=== PATIENT | female | born 1930 | race Caucasian/White ===

== ENCOUNTER 2016-10-16 10:00 | Emergency (ER) | payer MEDICARE ==
[~2016-10-16 10:00] MED LIST: BENICAR20 PO; BENICAR5 PO; CALTRA600D PO; DSS50 PO; FERROUS GLUCONATE PO; GLUCCHONDR PO; MULTIVITAMI1 PO; NAMENDA5 PO; NEOSPORIN OPH S10 ML OPH; PCET PO; ZOFRAN8 PO; ZOL50 PO
[2017-01-29] MEDS ORDERED: ZOL50 PO (10:37)
[2017-01-29] MEDS ORDERED: NAMENDA5 PO (10:37)
[2017-01-29] MEDS ORDERED: PRILO PO (10:37)
[2017-01-29] MEDS ORDERED: CLARIT10 PO (10:37)
[2017-01-29] MEDS ORDERED: MYLANTA LIQUID PO (10:38)
[2017-01-29] MEDS ORDERED: T PO (10:39)
[2017-01-29] MEDS ORDERED: CAT1 PO (10:39)
[2017-01-29] MEDS ORDERED: CALCIUM CARB PO (10:40)
[2017-01-29] MEDS ORDERED: MULTIVITAMI1 PO (10:41)
[2017-01-29] MEDS ORDERED: DSS PO (10:42)
== END 2016-10-16 15:22 | disposition home or self-care (01) ==
LOC: ER 10:00
DX: S02.2XXA Fracture of nasal bones, initial encounter for closed fracture (principal); S00.83XA Contusion of other part of head, initial encounter; F03.90 Unspecified dementia, unspecified severity, without behavioral disturbance, psychotic disturbance, mood disturbance, and anxiety; I10 Essential (primary) hypertension; D64.9 Anemia, unspecified; Z90.710 Acquired absence of both cervix and uterus; Z88.0 Allergy status to penicillin; Z88.8 Allergy status to other drugs, medicaments and biological substances; Z88.5 Allergy status to narcotic agent; Z79.899 Other long term (current) drug therapy; W22.8XXA Striking against or struck by other objects, initial encounter
CPT/HCPCS: 70160; 70450; 99284

== ENCOUNTER 2016-11-26 23:55 | Emergency (ER) | payer MEDICARE ==
[2016-11-26 23:06] LABS: BASOPHILS 0.5 %; BASOPHILS ABSOLUTE 0.03 10/3/uL (0.0-0.16); EOSINOPHILS 2.5 %; EOSINOPHILS ABSOLUTE 0.15 10/3/uL (0.0-0.53); IMMATURE GRANULOCYTES 0.3 %; IMMATURE GRANULOCYTES ABSOLUTE 0.02 10/3/uL (0.0-0.11); LYMPHOCYTES 25.3 %; LYMPHOCYTES ABSOLUTE 1.51 10/3/uL (0.67-4.30); MEAN CORPUS HGB CONC 32.6 g/dL (32.0-36.0); MEAN CORPUSCULAR VOLUME 97.9 fL (80-100); MEAN PLATELET VOLUME 11.2 fL (9.2-13.0); MONOCYTES 8.9 %; MONOCYTES ABSOLUTE 0.53 10/3/uL (0.21-1.20); NEUTROPHILS 62.5 %; NEUTROPHILS ABSOLUTE 3.72 10/3/uL (2.02-8.40); RBC DISTRIBUTION WIDTH 13.4 % (12.0-16.0)
[2016-11-26 23:09] LABS: ER CBC TAT 0 Hrs 07 Mins; HEMATOCRIT 33.1 % (36.0-48.0); HEMOGLOBIN 10.8 g/dL (12.0-16.0); MANUAL DIFF NO %; PLATELET COUNT 149 10/3/uL (150-400); RED CELL COUNT 3.38 10/6/uL (4.0-5.6)
[2016-11-26 23:27] LABS: A/G RATIO 1.1 (0.7-1.9); ALBUMIN 3.6 G/DL (3.5-5.0); ALKALINE PHOSPHATASE 107 U/L (45-117); BUN (BLOOD UREA NITROGEN) 25 MG/DL (6-23); CALCIUM, SERUM 8.8 MG/DL (8.5-10.4); CHLORIDE, SERUM 108 MMOL/L (96-112); CREATININE 1.21 MG/DL (0.55-1.02); GFR AFRICAN AMERICAN 47 ML/MIN (>=60); GFR NON AFRICAN AMERICAN 40 ML/MIN (>=60); GLOBULIN 3.2 G/DL (2.5-4.1); GLUCOSE, SERUM 103 MG/DL (60-99); POTASSIUM, SERUM 3.8 MMOL/L (3.5-5.3); SGOT(AST) 28 U/L (5-40); SGPT(ALT) 21 U/L (5-65); SODIUM, SERUM 143 MMOL/L (135-148); TOTAL BILIRUBIN 0.3 MG/DL (0-1.2); TOTAL PROTEIN 6.8 G/DL (6.0-8.5)
[2016-11-26 23:28] LABS: CO2 (CARBON DIOXIDE) 31 MMOL/L (24-34)
[2016-11-27 00:09] LABS: ASCORBIC ACID (UR NOT ORDER) NEG (NEG); BILIRUBIN, URINE NEGATIVE (NEG); ER URINALYSIS TAT 0 Hrs 00 Mins; KETONE, URINE TRACE MG/DL (NEG); LEUKOCYTE ESTERASE(NOT OR SMALL (NEG); NITRITE (URINE) NEG (NEG); WBC (NOT ORDERED) (RFLEX) 5 (0-5)
[2017-01-29] MEDS ORDERED: NAMENDA5 PO (10:37)
[2017-01-29] MEDS ORDERED: PRILO PO (10:37)
[2017-01-29] MEDS ORDERED: ZOL50 PO (10:37)
[2017-01-29] MEDS ORDERED: CLARIT10 PO (10:37)
[2017-01-29] MEDS ORDERED: MYLANTA LIQUID PO (10:38)
[2017-01-29] MEDS ORDERED: CAT1 PO (10:39)
[2017-01-29] MEDS ORDERED: T PO (10:39)
[2017-01-29] MEDS ORDERED: CALCIUM CARB PO (10:40)
[2017-01-29] MEDS ORDERED: MULTIVITAMI1 PO (10:41)
[2017-01-29] MEDS ORDERED: DSS PO (10:42)
== END 2016-11-27 02:34 | disposition home or self-care (01) ==
LOC: ER 23:55
PROVIDERS: Nurse Practitioner Acute Care
DX: S00.93XA Contusion of unspecified part of head, initial encounter (principal); S00.01XA Abrasion of scalp, initial encounter; I10 Essential (primary) hypertension; F03.90 Unspecified dementia, unspecified severity, without behavioral disturbance, psychotic disturbance, mood disturbance, and anxiety; Z88.0 Allergy status to penicillin; Z88.5 Allergy status to narcotic agent; Z88.8 Allergy status to other drugs, medicaments and biological substances; Z79.899 Other long term (current) drug therapy; W19.XXXA Unspecified fall, initial encounter; Y92.89 Other specified places as the place of occurrence of the external cause
CPT/HCPCS: 70450; 72125; 80053; 81001; 85025; 87086; 99285